=== PATIENT | male | born 1980 | race African-American/Black ===

== ENCOUNTER 2021-09-03 21:36 | Emergency (ER) | payer OTHER ==
[~2021-09-03] VITALS: Ht 175.3 cm; Wt 82.0 kg
[2021-09-03] MEDS ORDERED: SODIUM CHLORIDE 0.9% 1,000 ML IV ONE (23:00)
[2021-09-03 23:06] LABS: CLARITY URINE CLOUDY (CLEAR); COLOR URINE YELLOW (YELLOW); KETONES URINE TRACE (NEGATIVE); LEUKOCYTE ESTERASE URINE NEGATIVE (NEGATIVE); NITRITE URINE NEGATIVE (NEGATIVE); OCCULT BLOOD URINE 1+ (NEGATIVE); PH URINE 5.5 (4.5-8.0); PROTEIN URINE 2+ (NEGATIVE); SPECIFIC GRAVITY URINE 1.017 (1.005-1.030)
[2021-09-03 23:16] LABS: *COCAINE SCREEN URINE NEGATIVE (NEGATIVE); METHADONE URINE SCREEN NEGATIVE (NEGATIVE); OPIATES URINE SCREEN NEGATIVE (NEGATIVE)
[2021-09-03 23:17] LABS: *AMPHETAMINES SCREEN URINE PRESUMTIVE POSITIVE (NEGATIVE); *BARBITURATES SCREEN URINE NEGATIVE (NEGATIVE); *BENZODIAZEPINES SCREEN URINE PRESUMTIVE POSITIVE (NEGATIVE); CANNABINOID URINE SCREEN PRESUMTIVE POSITIVE (NEGATIVE); PHENCYCLIDINE URINE SCREEN PRESUMTIVE POSITIVE (NEGATIVE)
[2021-09-03 23:18] LABS: BASOPHILS % 0.2 % (0.0-2.0); EOSINOPHILS % 0.3 % (0.0-5.0); HEMATOCRIT. 45.4 % (42.0-52.0); HEMOGLOBIN. 15.6 g/dL (14.0-18.0); LYMPHOCYTES % 7.7 % (20.0-50.0); MEAN CORPUSCULAR HEMOGLOBIN 35.1 pg (28.0-32.0); MEAN CORPUSCULAR VOLUME 102.3 fL (80.0-94.0); NEUTROPHILS % 80.8 % (40.0-76.0); PLATELET 273 x1000/uL (130-400); RED BLOOD CELL COUNT 4.43 mill/uL (4.7-6.1); RED CELL DISTRIBUTION WIDTH 13.7 % (11.6-14.6)
[2021-09-03 23:24] LABS: CHLORIDE 105 mEq/L (98-107)
[2021-09-03 23:28] LABS: ETHANOL BLOOD < 10 mg/dL
[2021-09-04 01:00] VITALS: BP 125/87
== END 2021-09-04 01:29 ==
LOC: ER 21:36 → EDBD 21:36 → ER 09-04 01:29
DX: T50.992A Poisoning by other drugs, medicaments and biological substances, intentional self-harm, initial encounter (principal); S00.81XA Abrasion of other part of head, initial encounter; S80.212A Abrasion, left knee, initial encounter; G93.40 Encephalopathy, unspecified; R41.82 Altered mental status, unspecified; E16.2 Hypoglycemia, unspecified; X58.XXXA Exposure to other specified factors, initial encounter; Y93.89 Activity, other specified; Y92.89 Other specified places as the place of occurrence of the external cause; Y99.8 Other external cause status
CPT/HCPCS: 36415; 70450; 71045; 73610; 80053; 80305; 80320; 81003; 82962; 85025; 96360; 99285; J7030; G0480

== ENCOUNTER 2023-04-26 19:17 | Emergency (ER) | payer SELFPAY ==
[~2023-04-26] VITALS: Ht 188 cm; Wt 81.8 kg
[2023-04-26 19:39] VITALS: BP 136/86
[2023-04-26] MEDS ORDERED: LORAZEPAM 0.5MG TABLET PO ONE (21:30)
[2023-04-26] MEDS ORDERED: ACETAMINOPHEN 325MG TABLET PO ONE (21:30)
[2023-04-26] MEDS ORDERED: IBUP-2029 MT (21:56)
[2023-04-26] MEDS ORDERED: CYCL10TA21 MT (21:56)
== END 2023-04-26 22:30 | disposition home or self-care (01) ==
LOC: ER 19:17
DX: S20.211A Contusion of right front wall of thorax, initial encounter (principal); V49.59XA Passenger injured in collision with other motor vehicles in traffic accident, initial encounter; Y93.89 Activity, other specified; Y92.89 Other specified places as the place of occurrence of the external cause; Y99.8 Other external cause status
CPT/HCPCS: 71101; 99283

== ENCOUNTER 2023-05-09 11:19 | Emergency (ER) | payer OTHER ==
[~2023-05-09] VITALS: Ht 188 cm; Wt 79.4 kg
[~2023-05-09 11:19] MED LIST: CYCL10TA21 MT; IBUP-2029 MT
[2023-05-09 11:46] VITALS: TEMP 98.5; O2SAT 96
[2023-05-09] MEDS ORDERED: LIDOCAINE HCL 1% 20ML VIAL (Pyxis) INJ INFIL ONE (15:00)
[2023-05-09 15:27] LABS: BASOPHILS % 0.6 % (0.0-2.0); EOSINOPHILS % 3.1 % (0.0-5.0); HEMOGLOBIN. 13.9 g/dL (14.0-18.0); LYMPHOCYTES % 34.2 % (20.0-50.0); MEAN CORPUSCULAR VOLUME 94.3 fL (80.0-94.0); MEAN PLATELET VOLUME 7.3 fl (7.4-10.4); MONOCYTES % 11.6 % (2.0-8.0); NEUTROPHILS % 50.5 % (40.0-76.0); PLATELET 265 x1000/uL (130-400); RED BLOOD CELL COUNT 4.35 mill/uL (4.7-6.1); RED CELL DISTRIBUTION WIDTH 13.4 % (11.6-14.6)
[2023-05-09 15:30] LABS: CHLORIDE 105 mEq/L (98-107)
[2023-05-09] MEDS ORDERED: LIDOCAINE HCL 1% 20ML VIAL (Pyxis) INJ INFIL NR (17:00)
[2023-05-09] MEDS ORDERED: CYCL10TA21 MT (17:37)
[2023-05-09 17:45] VITALS: BP 126/81; PULSE 77; RESP 18
[2023-05-09] MEDS ORDERED: KETOROLAC 60MG/2ML VIAL IM ONE (17:45)
== END 2023-05-09 18:34 | disposition home or self-care (01) ==
LOC: ER 11:19
DX: M25.472 Effusion, left ankle (principal); Z98.890 Other specified postprocedural states
CPT/HCPCS: 80048; 85025; 85651; 36415; 73590; 73610; 73630; 20600; 96372; 99284; J1885; J3490; Z7610 ×2